=== PATIENT | male | born 1990 | race Caucasian/White ===

== ENCOUNTER → 2021-07-10 | Outpatient (CLI) | payer MEDICAID ==
[~2021-07-10] MED LIST: 0.9% SODIUM CHLORIDE 10 ML SYRINGE IVP ONE; IOHEXOL 350 MG/ML 100 ML VIAL ONE; SODIUM CHLORIDE 0.9% 100 ML ONE
== END | disposition home or self-care (01) ==
LOC: RADMN 01:23
DX: J98.11 Atelectasis (principal); J90 Pleural effusion, not elsewhere classified; R91.8 Other nonspecific abnormal finding of lung field; R19.00 Intra-abdominal and pelvic swelling, mass and lump, unspecified site
CPT/HCPCS: 71275; J7050; Q9967; X7700